=== PATIENT | female | born 1970 ===

== ENCOUNTER → 2016-10-11 | Outpatient (CLI) | payer BC | END | disposition home or self-care (01) | LOC: C.LABMFLN 13:52 | PROVIDERS: ATTEND Family Medicine | DX: R10.9 Unspecified abdominal pain (principal) ==

== ENCOUNTER → 2017-02-09 | Outpatient (CLI) | payer BC ==
[2017-02-09 18:40] LABS: THYROID STIMULATING HORMONE 3.5 uIu/ml (0.300-4.500)
== END | disposition home or self-care (01) ==
LOC: C.LABMFLN 16:26
PROVIDERS: ATTEND Family Medicine
DX: E03.9 Hypothyroidism, unspecified (principal)

== ENCOUNTER → 2017-11-05 | Outpatient (CLI) | payer BC ==
[2017-11-05 17:56] LABS: BASO % 0.8 %; BASO ABS # 0.04 K/uL (0-0.2); EOS % 4.1 %; EOS ABS # 0.22 K/uL (0-0.5); HEMATOCRIT 40.1 % (37-47); HEMOGLOBIN 13.9 g/dL (12.0-16.0); IG# 0.01 K/uL (0.00-0.02); LYMPH % 32.1 %; LYMPH ABS # 1.71 K/uL (1.2-3.4); MEAN CORPUSCULAR HEMOGLOBIN 31.9 pg (25-34); MEAN CORPUSCULAR HGB CONC 34.7 g/dl (32-36); MEAN PLATELET VOLUME 10.8 fL (7.4-10.4); MONO % 5.8 %; MONO ABS # 0.31 K/uL (0.11-0.59); NEUT ABS # 3.03 K/uL (1.4-6.5); PLATELET COUNT 200 K/uL (130-400); RED CELL DISTRIBUTION WIDTH SD 40.8 fL (36.4-46.3); WHITE BLOOD COUNT 5.32 K/uL (4.8-10.8)
[2017-11-05 18:02] LABS: ALBUMIN 3.6 gm/dl (3.4-5.0); ALT/SGPT 24 U/L (12-78); BLOOD UREA NITROGEN 17 mg/dl (7-18); CALCIUM 8.6 mg/dl (8.5-10.1); CARBON DIOXIDE 29 mmol/L (21-32); CHOLESTEROL 212 mg/dl (0-200); CREATININE 0.83 mg/dl (0.60-1.20); GLUCOSE 95 mg/dl (70-99); POTASSIUM 3.7 mmol/L (3.5-5.1); SODIUM 141 mmol/L (136-145)
[2017-11-05 18:15] LABS: ALKALINE PHOSPHATASE 69 U/L (45-117); AST/SGOT 15 U/L (15-37); LDL CHOLESTEROL CALCULATED 143 mg/dl; TOTAL PROTEIN 7.2 gm/dl (6.4-8.2)
== END | disposition home or self-care (01) ==
LOC: C.LABMFLN 11:25
PROVIDERS: ATTEND Family Medicine
DX: E03.9 Hypothyroidism, unspecified (principal); E78.5 Hyperlipidemia, unspecified; I10 Essential (primary) hypertension